=== PATIENT | female | born 1955 | race Caucasian/White ===

== ENCOUNTER 2018-08-24 11:00 | Outpatient (RCR) | payer MEDICAID, SELFPAY | END 2018-08-25 23:59 | LOC: NS 11:00 | PROVIDERS: PCP Pathology Anatomic Pathology & Clinical Pathology; Visit Provider Family Medicine | DX: E78.1 Pure hyperglyceridemia (principal); I10 Essential (primary) hypertension; E66.9 Obesity, unspecified; Z68.41 Body mass index [BMI] 40.0-44.9, adult; Z71.3 Dietary counseling and surveillance | CPT/HCPCS: 97802; 97803 ==

== ENCOUNTER 2018-09-20 15:30 | Outpatient (RCR) | payer OTHER, SELFPAY | END 2018-09-24 23:59 | LOC: NS 15:30 | PROVIDERS: Family Provider Family Medicine; PCP Family Medicine; Visit Provider Family Medicine | DX: E78.1 Pure hyperglyceridemia (principal); I10 Essential (primary) hypertension; E66.9 Obesity, unspecified; Z68.41 Body mass index [BMI] 40.0-44.9, adult; Z71.3 Dietary counseling and surveillance | CPT/HCPCS: 97803 ==

== ENCOUNTER 2018-10-04 10:23 | Outpatient (RCR) | payer OTHER, SELFPAY | END 2018-10-04 23:59 | LOC: NS 10:23 | PROVIDERS: Family Provider Family Medicine; PCP Family Medicine; Visit Provider Family Medicine | DX: E78.1 Pure hyperglyceridemia (principal); I10 Essential (primary) hypertension; E66.9 Obesity, unspecified; Z68.41 Body mass index [BMI] 40.0-44.9, adult; Z71.3 Dietary counseling and surveillance | CPT/HCPCS: 97803 ==

== ENCOUNTER 2018-10-08 09:00 | Outpatient (RCR) | payer OTHER, SELFPAY ==
--- NOTE | 2018-08-26 17:54 | HP.PTEVAL ---
Patient's Visit Information ERINN DIAZ is a 62 year old F referred to Physical Therapy by [facility]AGE with a diagnosis of C/s spondylosis. Date of Evaluation: 08/26/18 Physical Therapist: Waylon Guan DPT, OC - Visit Plan Frequency: 2x /Week Duration: 4-6 Weeks Plan: 2x/week for 4-6 weeks for ... Chanel based c/s ret to extensiona and mobs if needed. Progress to ret/ext when approp. and postural strengthening. Manual traction to mechanical if needed. ES and MH if painful at rest. - Subjective Subjective: Chronic neck pain. Hard to lift anything with arms in front and hard to turn head to the left. Sends pain down arm. Doctor is running tests on flank pain R side and ruling out other things. Neck and arm started a couple months ago. Fell landing on R side breaking wrist in December. R head and neck pain daily constant achyiness. R arm hurts at times to , she says she needs ulnar nerve surgery in elbow. Goes numb and tingly at times. Wakes up and hard to get comfy at night. Not employed. Considered disabled with Lupus. Spends day sitting as she feels bad. Normally she baaby sits grandkids and work outside. LImited with this pain. No regular ex except walking. Does basic ADLs abut everything is uncomfortable. - Pain R neck Pain Intensity (Out of 10): 4 Pain Intensity Range: 4, 8 - Objective I with gait and trasnfers. reflexes 2/3 bi and tri B. Sensation UE WNL to gross light touch. UE AROM WFL and without increased pain. C/S aROM 40 ext with pain R neck, R rotation 60 adn L 65, retraction hurts. Posture is forward head and protractred scap, thoracic kyphosis evident. No tenderness evident in soft tissue of neck today. - VAT. Baseline 3/10 R neck pain... Repeated motion c/s protrusion: W to 4/10, creates TREVIZO. repeated retraction: produces some R neck pain pinch but overall B abolishing neck pain and increasing c/s ext to 50 adn R rotation to 70. Feels better in a slightly retracted position. + c/s compression test R - Goals Goal 1:: Full c/s AROM without increased pain. Goal Time Frame: 4-6 Weeks Goal 2:: Abolish arm sypmtoms and neck 75% better at 2/10 at worst. Goal Time Frame: 4-6 Weeks Goal 3:: Feel 75% better overall. Goal Time Frame: 4-6 Weeks Goal 4:: Sleep without waking at night due to pain. Goal Time Frame: 4-6 Weeks - Rehabilitation Potential Physical Therapy Diagnosis: C/s radiculopathy Rehabilitation Potential: Fair - Anticipated Interventions Patient/Client Instruction: Educate patient on: Condition, Plan of Care For the Purpose of:: To decrease pain, To improve nutrient delivery to tissue, To increase tolerance to activity/condition/position Therapeutic Exercise to Include: Strength training, Flexibilty training, Passive ROM, Active ROM, Dynamic Lumbar Stabilization, Chanel Exercises For the Purpose of:: To decrease pain, To increase ROM, To increase tolerance to activity/condition/position, To improve ability of physical actions for home/community/work/leisure Manual Therapy Techniques to Include: Mobilization For the Purpose of:: To increase ROM TENS: Yes Thermo therapy (hot pack): Yes Intermittent cervical traction: Yes For the Purpose of:: To decrease pain, To increase ROM, To increase tolerance to activity/condition/position, To improve ability of physical actions for home/community/work/leisure Thank you for the opportunity to evaluate your patient. For Medicare and Medicare HMO plans, please review the plan of care and approve it. It will need to be FAXED BACK to us at [phone] for Medicare purposes. Please let me know if there are questions or concerns regarding this plan of care. Physician Signature: Date:
--- NOTE | 2018-10-08 10:24 | HP.PTREVAL_ITS ---
[facility], It has been my pleasure to treat ERINN DIAZ over the last 10 visits for C/s spondylosis. Please see the progress note below for an update on the physical therapy plan of care! Subjective: Not too bad. Did workout today. Thinks that she may not be able to join anymore as insurance does not cover why weight. HEP: Band pulls down and out to side, rows, back bends, chin tucks. Neck stretches. Will see doctor on 10/21. Objective/Function: C/S AROM 55 ext with slight R neck discomfort. R rotation 60 adn R 65 with slight pinch on R. Tender R paraspinals. Doing well but plans to cotniue strength in gym are curtailed as patient not sure she can join. Will continue HEP and f/u with doctor in 2 weeks. If no other options for remaining pain, she may benefit from some continue STM and progression of home strengthening if ordered by doctor. Plan Plan: Hold chart, pt to continue HEP and f/u with doctor in 2 weeks. Will call after that appointment for D/C or continued STM and progression of HEP due to likey not being able to join gym as planned at last weeks recheck. Goals Goal 1:: Full c/s AROM without increased pain. Goal Time Frame: 4-6 Weeks Goal Progress: Progressing Goal 2:: Abolish arm sypmtoms and neck 75% better at 2/10 at worst. Goal Time Frame: 4-6 Weeks Goal Progress: Progressing Goal 3:: Feel 75% better overall. Goal Time Frame: 4-6 Weeks Goal Progress: Goal Met Goal 4:: Sleep without waking at night due to pain. Goal Time Frame: 4-6 Weeks Goal Progress: Progressing Anticipated Interventions Patient/Client Instruction: Educate patient on: Condition, Plan of Care For the Purpose of:: To decrease pain, To improve nutrient delivery to tissue, To increase tolerance to activity/condition/position Therapeutic Exercise to Include: Strength training, Flexibilty training, Passive ROM, Active ROM, Dynamic Lumbar Stabilization, Pérez Exercises For the Purpose of:: To decrease pain, To increase ROM, To increase tolerance to activity/condition/position, To improve ability of physical actions for anna e/community/work/leisure Manual Therapy Techniques to Include: Mobilization For the Purpose of:: To increase ROM TENS: Yes Thermo therapy (hot pack): Yes Intermittent cervical traction: Yes For the Purpose of:: To decrease pain, To increase ROM, To increase tolerance to activity/condition/position, To improve ability of physical actions for home/community/work/leisure Please do not hesitate to contact me at [phone] by phone or if you have questions or concerns regarding this new plan of care! Sincerely, Waylon Guan, DPT, OCS, CSCS
--- NOTE | 2018-12-20 07:55 | HP.PT.NRP ---
HP - Discharge Summary (1) - Patient Information ERINN DIAZ was seen in my office for initial evaluation on 08/26/18. The following Plan of Care was established for this patient: Initial Frequency: 2x /Week Initial Duration: 4-6 Weeks - Anticipated Interventions Patient/Client Instruction: Educate patient on: Condition, Plan of Care For the Purpose of:: To decrease pain, To improve nutrient delivery to tissue, To increase tolerance to activity/condition/position Therapeutic Exercise to Include: Strength training, Flexibilty training, Passive ROM, Active ROM, Dynamic Lumbar Stabilization, Pérez Exercises For the Purpose of:: To decrease pain, To increase ROM, To increase tolerance to activity/condition/position, To improve ability of physical actions for home/community/work/leisure Manual Therapy Techniques to Include: Mobilization For the Purpose of:: To increase ROM TENS: Yes Thermo therapy (hot pack): Yes Intermittent cervical traction: Yes For the Purpose of:: To decrease pain, To increase ROM, To increase tolerance to activity/condition/position, To improve ability of physical actions for home/community/work/leisure This patient was last seen in our office 10/08/19. Pertinent comments regarding their Physical therapy will appear below: Pt seen 10 visits of POC and was 75% improved. She was to f/u with her doctor after her last visit adn call if she needed to return to therapy based ont hat visit. At this point, it has been over two months and I will discontinue from my care. At this point I will be discontinuing this patient from physical therapy. I would be happy to see this patient again in the future if found appropriate by the physician. Thank you! Waylon Guan, DPT, OCS, CSCS
== END 2018-10-08 19:00 | disposition home or self-care (01) ==
LOC: PT 09:00
PROVIDERS: Family Provider Family Medicine; PCP Family Medicine
DX: G56.22 Lesion of ulnar nerve, left upper limb (principal); M47.812 Spondylosis without myelopathy or radiculopathy, cervical region
CPT/HCPCS: 97012; 97014; 97110; 97140; 97162; 97530; G0283